=== PATIENT | male | born 1980 | race Caucasian/White ===

== ENCOUNTER 2023-11-17 09:10 | Emergency (ER) | payer OTHER, SELFPAY ==
[2023-11-17 09:15] VITALS: BP 127/84
--- NOTE | 2023-11-17 09:27 | ED.GENMED ---
History of Present Illness
General
Chief Complaint: Flank Pain
Source: patient
Exam Limitations: none
Time Seen by Provider: 11/17/23 09:17
Nursing documentation reviewed up to this point in time: agreed with
Travel History
Have you had any contact with someone who has COVID-19?: No
Do you have any symptoms of coronavirus? Fever > 100 degrees, chills, cough, shortness of breath, sore throat, loss of taste or smell, muscle aches, or headache?: No
History of Present Illness
History of Present Illness:
Patient is a 43-year-old male who complains of left flank pain since last night. He noticed his urine was darker several days ago. He has had kidney stones in the past and believes this feels similar.
He reports pain intensified after driving to work. He did vomit with the pain. He did take 600 mg of ibuprofen 1 hour prior to arriving without relief.
He denies any fever or chills.
Review of Systems
Review of Systems
Allergies reviewed?: Yes
All Other Systems: ROS reviewed and negative except as documented in HPI and ROS
Constitutional: Reports no symptoms
Respiratory: Reports no symptoms
Cardiac: Reports no symptoms
ABD/GI: Reports nausea and vomiting
: Reports flank pain (left flank)
Psychiatric: Reports no symptoms
Phy Exam
General Physical Exam
General Presentation: no apparent distress
General age: appears stated age
General Skin: warm and dry
General Habitus: normal
General Mental: alert
Gastrointestinal Exam
Gastrointestinal Exam: non tender and soft
Neurological Exam
Neurological Exam: alert and oriented x3
Musculoskeletal Exam
Musculoskeletal Exam: full ROM
Skin Exam
Skin Exam: normal color and warm/dry
Psychiatric Exam
Psychiatric Exam: normal mood/affect
Course
Orders/Labs/Results
Orders:
Orders
11/17/23 09:24
0.9% Sodium Chloride 1000 ml [Nss] 1,000 ml IV BOLUS
HYDROmorphone [Dilaudid] 1 mg IV NOW STA
Ondansetron Injectable [Zofran] 4 mg IV NOW STA
11/17/23 09:25
HYDROmorphone [Dilaudid] 1 mg .ROUTE .STK-MED ONE
Ondansetron Injectable [Zofran] 4 mg .ROUTE .STK-MED ONE
11/17/23 09:33
Complete Blood Count/With Diff Urgent
Comprehensive Metabolic Panel Urgent
Urinalysis Reflex To Culture Urgent
Date Specimen was Collected: 11/17/23
Time Specimen was Collected: 09:18
Urine Microscopic Reflex Cult Urgent
11/17/23 10:10
CT Abd/pel Without Iv Or Oral Urgent
Comment:
Reason For Exam: left flank pain
Ketorolac [Toradol] 15 mg IV NOW STA
11/17/23 10:11
Ketorolac [Toradol] 15 mg .ROUTE .STK-MED ONE
Abnormal Lab Results
11/17/23
09:33
MCH 25.6 L pg
(27.0-31.0)
MCHC 31.7 L g/dL
(33.0-37.0)
Absolute Lymphs (auto) 1.0 L 10^3/uL
(1.2-3.4)
Lymphocytes % 16.3 L %
(20.5-51.1)
Carbon Dioxide 21 L mmol/L
(22-30)
Glucose 125 H mg/dl
(70-99)
Urine Ketones Trace A
(Negative)
Ur Occult Blood Reflex 4+ A
(Negative)
Urine Bilirubin 1+ A
(Negative)
Leukocyte Esterase Rfl Trace A
(Negative)
Urine RBC 40-50 A /HPF
(0-2)
Urine Bacteria (Reflex) Few A
(Negative)
11/17/23 09:33
11/17/23 09:33
Vital Signs
Initial and Last Documented VS:
Initial Vital Signs
Temp Pulse Resp BP Pulse Ox
97.9 F 87 16 127/84 98
11/17/23 09:15 11/17/23 09:15 11/17/23 09:15 11/17/23 09:15 11/17/23 09:15
Last Documented Vital Signs
Temp Pulse Resp BP Pulse Ox
97.9 F 87 16 127/84 98
11/17/23 09:15 11/17/23 09:15 11/17/23 09:15 11/17/23 09:15 11/17/23 09:15
MDM/Problems Addressed
Differential Diagnosis Includes:
Not limited to renal colic UTI less likely
MDM/Problems Addressed:
Patient with a 4 mm stone in the proximal left ureter nonobstructive right nephrolithiasis.
No evidence of infection patient feels more comfortable initially given Dilaudid however Toradol improved patient's symptoms. Will DC with pain medication fluids ibuprofen and strainer Flomax and outpatient urology follow-up
*Radiology
Radiology exam reviewed: radiology read reviewed
*Pulse Oximetry
Patient hypoxic: no
*Critical Care Note
Total Time (30-74mins, 75-104mins- exclusive of procedures): Not Applicable
ED Attending Note
-
Portions of this chart may have been created with voice recognition software.� Occasional wrong word or��sound alike� substitutions may have occurred due to the inherent limitations of voice recognition software.
Discharge Plan
Departure
Patient Disposition: Home (Routine Discharge)
Date of Disposition: 11/17/23
Time of Disposition: 11:50
Patient with high blood pressure during this ER visit?: No
Covid-19: Not Applicable
Discharge Problem:
Renal colic on left side
Instructions: Kidney Stones (DC), Narcotic Pain Medication
Prescriptions:
New
hydrocodone-acetaminophen 5-325 mg tablet
1 tab PO Q6H PRN (Reason: Pain) Qty: 10 0RF
tamsulosin [Flomax] 0.4 mg capsule
0.4 mg PO DAILY Qty: 7 0RF
No Action
naproxen sodium [Aleve] 220 MG tablet
220 mg PO
amoxicillin-pot clavulanate 875-125 mg tablet
1 tab PO Q12H Qty: 13 0RF
Referrals:
Sanna Worrell DO [Family Provider] -
Michael Lozano MD [Active] -
Activity Restrictions/Additional Instructions:
As discussed stay well-hydrated. You may take ibuprofen 600 mg every 8 hours with food however if needed a prescription for narcotic pain medication was sent to your pharmacy take as directed. This medication will cause drowsiness no driving or
drinking alcohol on medication. This medication will cause constipation. Take [id number] stool softener while taking this medication. A prescription for Flomax was also sent to your pharmacy take as directed daily for the next 7 days.
Follow-up with urology call today to make an appointment for next week. Return if any worsening of symptoms or increased pain nausea vomiting fever chills.
Interventions
Interventions:
*Risk Screen - Suicide Last Done: 11/17/23 10:00
*General Assessment Last Done: 11/17/23 10:00
*Neglect/Abuse Screening Last Done: 11/17/23 10:00
*ED COVID-19 Vaccine History Last Done: 11/17/23 09:15
MV-Hawbql-Beqopvsbys Assessment Last Done: 11/17/23 10:00
ED-Male Genitourinary Assessment Last Done: 11/17/23 10:00
Discharge Date and Time
Print Language: SAMI
[2023-11-17] MEDS: DILAUDID 1 MG IV (09:30)
[2023-11-17] MEDS: ZOFRAN 4 MG IV (09:30)
[2023-11-17] MEDS: NSS 1000 IV (09:31)
[2023-11-17 09:42] LABS: % Basophils 0.5 % (0-2); % Eosinophils 4.9 % (0-6); % Immature Granulocytes 0.2 % (0-0.5); % Lymphocytes 16.3 % (20.5-51.1); % Monocytes 9.1 % (1.7-9.3); Absolute Eosinophils 0.3 10^3/uL (0-0.7); Absolute Monocytes 0.5 10^3/uL (0.1-0.6); Absolute Neutrophils 4.1 10^3/uL (1.4-6.5); Hematocrit 41.7 % (39.0-52.0); Hemoglobin 13.2 g/dL (13.0-18.0); Mean Corp Hgb Conc. 31.7 g/dL (33.0-37.0); Mean Corpuscular Hgb 25.6 pg (27.0-31.0); Mean Platelet Volume 9.9 fL (7.4-10.4); Nucleated Red Blood Cells % 0 % (-); Platelet Count 257 10^3/uL (130-400); Red Blood Cell Count 5.15 10^6/uL (4.70-6.10); Red Cell Dist. Width 14.4 % (11.5-14.5)
[2023-11-17 09:45] LABS: Urine Albumin Trace (Neg - Trace); Urine Bilirubin 1+ (Negative); Urine Character Slightly Cloudy (Clear); Urine Color Yellow; Urine Glucose Negative (Negative); Urine Ketone Trace (Negative); Urine Leukocyte Trace (Negative); Urine Nitrite Negative (Negative); Urine Occult Blood 4+ (Negative); Urine Urobilinogen Negative (Neg - 1+)
[2023-11-17 09:54] LABS: ALT (SGPT) 42 U/L (0-50); AST (SGOT) 38 U/L (17-59); Albumin 4.6 g/dl (3.5-5.0); Alkaline Phosphatase 75 U/L (38-126); Blood Urea Nitrogen 12 mg/dl (9-20); Calcium 9.8 mg/dl (8.4-10.2); Carbon Dioxide 21 mmol/L (22-30); Chloride 107 mmol/L (98-107); Glucose 125 mg/dl (70-99); Potassium 4.1 mmol/L (3.5-5.1); Sodium 142 mmol/L (135-145); Total Bilirubin 0.5 mg/dl (0.2-1.3); Total Protein 7.5 g/dl (6.3-8.2); eGFR > 60.00
[2023-11-17] MEDS: TORADOL 15 MG IV (10:12)
[2023-11-17 10:32] LABS: Urine Squamous Cell 0-2 /LPF (Few)
[2023-11-17 10:33] LABS: Urine Bacteria Few (Negative); Urine Red Blood Cell 40-50 /HPF (0-2); Urine White Cell 0-2 /HPF (0-5)
[2023-11-17 12:23] VITALS: BP 132/71
== END 2023-11-17 12:24 | disposition home or self-care (01) ==
LOC: EMR 09:10
PROVIDERS: EMERGENCY PHYSICIAN Emergency Medicine; FAMILY PHYSICIAN Family Medicine
DX: N13.2 Hydronephrosis with renal and ureteral calculous obstruction (principal); R11.10 Vomiting, unspecified; Z87.442 Personal history of urinary calculi
CPT/HCPCS: 99284; 96374; 96375 ×2; 96361; 74176; 80053; 81003; 81015; 85025